=== PATIENT | female | born 1965 | race Caucasian/White ===

== ENCOUNTER 2017-04-14 13:09 | Emergency (ER) | payer OTHER ==
--- NOTE | 2017-04-14 14:43 | Emergency Department Report ---
ED Fall HPI - General Chief Complaint: Laceration/Recheck/Suture Stated Complaint: FELL/HEAD LACERATION Time Seen by Provider: 04/14/17 14:28 Source: patient, family Mode of arrival: Ambulatory Limitations: No Limitations - History of Present Illness Initial Comments: Patient reported that she tripped and fell striking her head on the ground which was concrete. She said that she didn't lose consciousness. Reports cut to forehead. Reports headache at 10 out of 10. Denies any neck pain or stiffness. Patient reports that she had bilateral knee pain but the left is worse than the right. Pain is 10 out of 10 PRESSURE is 166/110 and she says she does not have high blood pressure and she only takes vitamins she is okay she feels anxious. Denies blurred vision or dizziness at present. Denies any nausea or vomiting. Denies any back pain. Denies any decreased sensation. Pain is achy and located all over her head. TD Vaccine is not up-to-date. Patient reports She was having chest pain.. She has no history of heart disease. Denies any shortness of breath. Patient appears anxious. 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 denies: neck pain, numbness, weakness, chest paint, shortness of breath, abdominal pain, hematuria, unable to walk, lightheaded, vertigo, confusion - Related Data Previous Rx's Medication Instructions Recorded Last Taken Type Acetaminophen [Non-Aspirin Pain 500 mg PO TID PRN #15 tablet 04/14/17 Unknown Rx Relief] Ascorbic Acid/Vitamin E/Biotin 1 each PO QDAY #30 tab.chew 04/14/17 Unknown Rx [Hair Skin Nails-Biotin Gummies] Cephalexin [Keflex] 500 mg PO Q8HR #15 cap 04/14/17 Unknown Rx Allergies Allergy/AdvReac Type Severity Reaction Status Date / Time No Known Allergies Allergy Unverified 04/14/17 13:31 ED Review of Systems ROS: Stated complaint: FELL/HEAD LACERATION Other details as noted in HPI Comment: All other systems reviewed and negative Constitutional: denies: chills, fever Eyes: denies: vision change ENT: denies: epistaxis Respiratory: no symptoms reported Cardiovascular: chest pain. denies: palpitations, edema, syncope Gastrointestinal: denies: abdominal pain, nausea, vomiting, diarrhea Genitourinary: denies: urgency, dysuria, frequency, hematuria Musculoskeletal: arthralgia. denies: back pain, joint swelling, myalgia Skin: other (laceration) Neurological: headache. denies: weakness, numbness, paresthesias, confusion, abnormal gait, vertigo Psychiatric: anxiety ED Past Medical Hx - Past Medical History Previous Medical History?: No - Surgical History Past Surgical History?: Yes Additional Surgical History: hyesterectomy - Family History Family history: no significant - Social History Smoking Status: Never Smoker Substance Use Type: None - Medications Home Medications: Home Medications Medication Instructions Recorded Confirmed Last Taken Type Acetaminophen [Non-Aspirin Pain 500 mg PO TID PRN #15 tablet 04/14/17 Unknown Rx Relief] Ascorbic Acid/Vitamin E/Biotin 1 each PO QDAY #30 tab.chew 04/14/17 Unknown Rx [Hair Skin Nails-Biotin Gummies] Cephalexin [Keflex] 500 mg PO Q8HR #15 cap 04/14/17 Unknown Rx ED Physical Exam - General Limitations: Language Barrier General appearance: alert, anxious - Head Head exam: Present: atraumatic, normocephalic, normal inspection - Expanded Head Exam Expanded Head exam: Present: laceration (mid forehead). Absent: abrasion, contusion, hematoma, racoon eyes, redding's sign, general tenderness, tenderness of temporal artery, CSF rhinorrhea, CSF otorrhea - Eye Eye exam: Present: normal appearance, PERRL, EOMI. Absent: scleral icterus, conjunctival injection, nystagmus, periorbital swelling, periorbital tenderness Pupils: Present: normal accommodation - ENT ENT exam: Present: normal exam, normal orophraynx - Neck Neck exam: Present: normal inspection, full ROM. Absent: tenderness, meningismus, lymphadenopathy - Expanded Neck Exam Expanded Neck exam: Absent: tenderness, midline deformity, anterior neck swelling, tracheal deviation - Respiratory Respiratory exam: Present: normal lung sounds bilaterally. Absent: respiratory distress, chest wall tenderness - Cardiovascular Cardiovascular Exam: Present: regular rate, normal rhythm, normal heart sounds - GI/Abdominal GI/Abdominal exam: Present: soft, normal bowel sounds. Absent: distended, tenderness, guarding, rebound, rigid - Extremities Exam Extremities exam: Present: normal inspection, full ROM, normal capillary refill , other (patient with joint deformity, swelling or erythema. Bilateral knee with full range of motion and strength 5 out of 5. No crepitus or effusion. No redness, abrasion or laceration. No neurovascular compromise her extremities. Pulses are 2+.). Absent: tenderness, pedal edema, joint swelling , calf tenderness - Back Exam Back exam: Present: normal inspection, full ROM. Absent: tenderness, CVA tenderness (R), CVA tenderness (L), muscle spasm, paraspinal tenderness, vertebral tenderness, rash noted - Neurological Exam Neurological exam: Present: alert, oriented X3, normal gait, reflexes normal. Absent: motor sensory deficit - Expanded Neurological Exam Expanded Neurological exam: Absent: innattentive, memory loss-remote event, memory loss- recent event, ataxia, receptive aphasia, expressive aphasia, total aphasia, tremor, protecting the airway Patient oriented to: Present: person, place, time Speech: Present: fluid speech Cranial nerves: EOM's Intact: Normal, Gag Reflex: Normal, Tongue Deviation: Normal, Nystagmus: Normal, Facial Sensation: Normal Cerebellar function: Romberg: Normal Upper motor neuron: Pronator Drift: Normal, Sensory Extinction: Normal Sensory exam: Upper Extremity Light Touch: Normal, Upper Extremity Pin Prick: Normal, Upper Extremity Temperature: Normal, UE 2 Point Discrimination: Normal, Lower Extremity Light Touch: Normal, Lower Extremity Pin Prick: Normal, Lower Extremity Temperature: Normal, LE 2 Point Discrimination: Normal Motor strength exam: RUE: 5, LUE: 5, RLE: 5, LLE: 5 DTR: bicep (R): 2+, bicep (L): 2+, tricep (R): 2+, tricep (L): 2+, knee (R): 2+ , knee (L): 2+, ankle (R): 2+, ankle (L): 2+ Best Eye Response ([place]): (4) open spontaneously Best Motor Response ([place]): (6) obeys commands Best Verbal Response ([place]): (5) oriented [place] Total: 15 - Psychiatric Psychiatric exam: Present: normal affect, normal mood - Skin Skin exam: Present: warm, dry, other (laceration forehead) - Expanded Skin Exam Expanded Type of lesion: Present: laceration (forehead) Distribution of rash: head (forehead) Description of rash: Present: size (3), tenderness, swelling (mild swelling around the laceration site). Absent: erythematous, indurated ED Course Vital Signs 04/14/17 13:12 Temperature 98.1 F Pulse Rate 79 Respiratory 22 Rate Blood Pressure 166/110 O2 Sat by Pulse 98 Oximetry PT/INR, D-dimer PT 13.5 Sec. (12.2-14.9) 04/14/17 15:13 INR 1.04 (0.87-1.13) 04/14/17 15:13 Vital Signs 04/14/17 04/14/17 13:12 17:32 Temperature 98.1 F 98 F Pulse Rate 79 76 Respiratory 22 18 Rate Blood Pressure 166/110 Blood Pressure 146/95 [Left] O2 Sat by Pulse 98 95 Oximetry - Reevaluation(s) Reevaluation #1: 04/14/17 17:37 Patient given [place] 5/325 2 tablets and Valium 10 mg. Emergency room for headache and anxiety. He is now calm and without pain. Procedure note laceration repair. SHe was also given Boostrix vaccines up-to-date tetanus in the emergency room - Laceration /Wound Repair Medial Frontal Wound Location: head (mid forehead) Wound Length (cm): 3 Wound's Depth, Shape: superficial, linear Wound Explored: clean Irrigated w/ Saline (ccs): 500 Betadine Prep?: Yes Anesthesia: 0.5% Sensorcaine (0.5% Marcaine) Volume Anesthetic (ccs): 2 Wound Debrided: moderate Wound Repaired With: sutures Suture Size/Type: 6:0 (Vicryl) Number of Sutures: 18 Layer Closure?: No Sterile Dressing Applied?: Yes ED Medical Decision Making - Lab Data Result diagrams: 04/14/17 15:13 04/14/17 15:13 Lab Results 04/14/17 04/14/17 04/14/17 Range/Units 15:13 15:13 15:13 WBC 10.9 (4.5-11.0) K/mm3 RBC 4.41 (3.65-5.03) M/mm3 Hgb 13.3 (10.1-14.3) gm/dl Hct 39.6 (30.3-42.9) % MCV 90 (79-97) fl MCH 30 (28-32) pg MCHC 34 (30-34) % RDW 14.0 (13.2-15.2) % Plt Count 242 (140-440) K/mm3 Lymph % (Auto) 15.1 (13.4-35.0) % [place] % (Auto) 5.4 (0.0-7.3) % Eos % (Auto) 1.4 (0.0-4.3) % Baso % (Auto) 0.6 (0.0-1.8) % Lymph # 1.6 (1.2-5.4) K/mm3 [place] # 0.6 (0.0-0.8) K/mm3 Eos # 0.1 (0.0-0.4) K/mm3 Baso # 0.1 (0.0-0.1) K/mm3 Seg Neutrophils % 77.5 H (40.0-70.0) % Seg Neutrophils # 8.4 H (1.8-7.7) K/mm3 PT (12.2-14.9) Sec. INR (0.87-1.13) APTT (24.2-36.6) Sec. Sodium 143 (137-145) mmol/L Potassium 4.7 (3.6-5.0) mmol/L Chloride 102.7 (98-107) mmol/L Carbon Dioxide 28 (22-30) mmol/L Anion Gap 17 mmol/L BUN 11 (7-17) mg/dL Creatinine 0.8 (0.7-1.2) mg/dL Estimated GFR > 60 ml/min BUN/Creatinine Ratio 13.75 % Glucose 95 (65-100) mg/dL Calcium 9.4 (8.4-10.2) mg/dL Troponin T < 0.010 (0.00-0.029) ng/mL Urine Color (Yellow) Urine Turbidity (Clear) Urine pH (5.0-7.0) Ur Specific [place] (1.003-1.030) Urine Protein (Negative) mg/dL Urine Glucose (UA) (Negative) mg/dL Urine Ketones (Negative) mg/dL Urine Blood (Negative) Urine Nitrite (Negative) Urine Bilirubin (Negative) Urine Urobilinogen (<2.0) mg/dL Ur Leukocyte Esterase (Negative) Urine WBC (Auto) (0.0-6.0) /HPF Urine RBC (Auto) (0.0-6.0) /HPF Hyaline Casts /LPF 04/14/17 04/14/17 Range/Units 15:13 16:02 WBC (4.5-11.0) K/mm3 RBC (3.65-5.03) M/mm3 Hgb (10.1-14.3) gm/dl Hct (30.3-42.9) % MCV (79-97) fl MCH (28-32) pg MCHC (30-34) % RDW (13.2-15.2) % Plt Count (140-440) K/mm3 Lymph % (Auto) (13.4-35.0) % [place] % (Auto) (0.0-7.3) % Eos % (Auto) (0.0-4.3) % Baso % (Auto) (0.0-1.8) % Lymph # (1.2-5.4) K/mm3 [place] # (0.0-0.8) K/mm3 Eos # (0.0-0.4) K/mm3 Baso # (0.0-0.1) K/mm3 Seg Neutrophils % (40.0-70.0) % Seg Neutrophils # (1.8-7.7) K/mm3 PT 13.5 (12.2-14.9) Sec. INR 1.04 (0.87-1.13) APTT 30.0 (24.2-36.6) Sec. Sodium (137-145) mmol/L Potassium (3.6-5.0) mmol/L Chloride (98-107) mmol/L Carbon Dioxide (22-30) mmol/L Anion Gap mmol/L BUN (7-17) mg/dL Creatinine (0.7-1.2) mg/dL Estimated GFR ml/min BUN/Creatinine Ratio % Glucose (65-100) mg/dL Calcium (8.4-10.2) mg/dL Troponin T (0.00-0.029) ng/mL Urine Color Colorless (Yellow) Urine Turbidity Clear (Clear) Urine pH 8.0 H (5.0-7.0) Ur Specific [place] 1.003 (1.003-1.030) Urine Protein <15 mg/dl (Negative) mg/dL Urine Glucose (UA) Neg (Negative) mg/dL Urine Ketones Neg (Negative) mg/dL Urine Blood Neg (Negative) Urine Nitrite Neg (Negative) Urine Bilirubin Neg (Negative) Urine Urobilinogen < 2.0 (<2.0) mg/dL Ur Leukocyte Esterase Neg (Negative) Urine WBC (Auto) < 1.0 (0.0-6.0) /HPF Urine RBC (Auto) < 1.0 (0.0-6.0) /HPF Hyaline Casts 1 /LPF - EKG Data -: EKG Interpreted by Me (attending physician) EKG shows normal: sinus rhythm (66 bpm) - EKG Data Interpretation: no acute changes - Radiology Data Radiology results: report reviewed CT scan of the brain revealed no acute intracranial processes X-ray knee reveals no acute fracture or dislocation. X-ray of chest reveals no acute cardiopulmonary processes - Medical Decision Making Course: The patient is status post accidental fall with headache, knee pain and laceration to forehead. See procedure note for detail and laceration repair. I explained to patient that her x-ray and CT scan was normal. She is also having atypical chest pain with anxiety and troponin within normal limits CBC, PT PTT and BMP stable and explained to patient. EKG reveals no acute findings. Patient has no comorbidities and her cardiac risk score is low. Patient appears to have normalized, she any headache or chest pain. Valium 10 mg by mouth emergency room for anxiety and 5/325 2 tablets for pain. Patient was given Boostrix 0.5 cc to update tetanus. I encouraged discharge instructions on closed head injury. Patient discharged home with prescription for Keflex, collagen vitamin and Tylenol plain and to follow-up status post head injury and 24 hours at urgent care or emergency room for reevaluation. Critical care attestation.: If time is entered above; I have spent that time in minutes in the direct care of this critically ill patient, excluding procedure time. ED Disposition Clinical Impression: Fall from ground level, Atypical chest pain, Anxiety about health, Elevated BP without diagnosis of hypertension, Arthralgia of both knees Laceration of forehead without complication Qualifiers: Encounter type: initial encounter Qualified Code(s): S01.81XA - Laceration without foreign body of other part of head, initial encounter Closed head injury without loss of consciousness Qualifiers: Encounter type: initial encounter Qualified Code(s): S09.90XA - Unspecified injury of head, initial encounter Headache Qualifiers: Headache type: post-traumatic Headache chronicity pattern: acute headache Intractability: not intractable Qualified Code(s): G44.319 - Acute post- traumatic headache, not intractable Disposition: DC-01 TO HOME OR SELFCARE Is pt being admited?: No Does the pt Need Aspirin: No Condition: Stable Instructions: Arthralgia (ED), Acute Headache (ED), Fall Prevention (ED), Laceration (ED), Absorbable Suture Care (ED), Minor Head Injury (ED), Chest Pain (ED) Additional Instructions: Follow-up primary care physician tomorrow status post head injury Take medication as instructed. Keep Affected area clean and dry Read Discharge instruction on closed head injury. If chest pain reoccur ,Return to the emergency room otherwise follow-up with primary care physician's office. Prescriptions: Acetaminophen [Non-Aspirin Pain Relief] 500 mg PO TID PRN #15 tablet PRN Reason: Pain Ascorbic Acid/Vitamin E/Biotin [Hair Skin Nails-Biotin Gummies] 1 each PO QDAY # 30 tab.chew Cephalexin [Keflex] 500 mg PO Q8HR #15 cap Referrals: PRIMARY CAREMD [Primary Care Provider] - 04/15/17 Forms: Accompanied Note, Work/School Release Form(ED) Print Language: FRENCH
[2017-04-14] MEDS ORDERED: VALIUM PO ONE (15:28)
[2017-04-14] MEDS ORDERED: NORCO 5/325 PO ONE (15:28)
[2017-04-14] MEDS ORDERED: BOOSTRIX IM ONE (15:29)
[2017-04-14] MEDS ORDERED: MARCAINE 0.5% INFILTRATI ONE (15:30)
[2017-04-14] MEDS ORDERED: NACL 0.9% IR ONE (15:30)
[2017-04-14 15:43] LABS: Basophils % (Auto) 0.6 % (0.0-1.8); Eosinophils % (Auto) 1.4 % (0.0-4.3); Hematocrit 39.6 % (30.3-42.9); Hemoglobin 13.3 gm/dl (10.1-14.3); Mean Corpuscular HGB Conc 34 % (30-34); Mean Corpuscular Hemoglobin 30 pg (28-32); Mean Corpuscular Volume 90 fl (79-97); Platelet Count 242 K/mm3 (140-440); Red Blood Count 4.41 M/mm3 (3.65-5.03); White Blood Count 10.9 K/mm3 (4.5-11.0)
--- NOTE | 2017-04-14 15:47 | Cat Scan Report ---
FINAL REPORT EXAM: CT HEAD/BRAIN WO CON HISTORY: fall TECHNIQUE: CT scan of the brain without IV contrast. Axial images only. PRIORS: None FINDINGS: Brain volume is normal for age. No hemorrhage, mass, mass effect, or midline shift. No hydrocephalus. Normal basal cisterns. No pathologic extra-axial fluid collection. No evidence of acute infarct. No skull fracture. IMPRESSION: 1. No acute intracranial finding.
[2017-04-14 15:48] LABS: Anion Gap 17 mmol/L; BUN/Creatinine Ratio 13.75; Blood Urea Nitrogen 11 mg/dL (7-17); Calcium 9.4 mg/dL (8.4-10.2); Carbon Dioxide 28 mmol/L (22-30); Chloride 102.7 mmol/L (98-107); Glucose 95 mg/dL (65-100); Potassium 4.7 mmol/L (3.6-5.0); Sodium 143 mmol/L (137-145)
[2017-04-14 15:51] LABS: INR 1.04 (0.87-1.13)
--- NOTE | 2017-04-14 15:57 | XRay Report ---
FINAL REPORT EXAM: XR CHEST ROUTINE 2V HISTORY: chest pain TECHNIQUE: Frontal and lateral chest radiographs. PRIORS: None. FINDINGS: The left lateral costophrenic angle was not completely included on the frontal image. The cardiomediastinal silhouette is normal. No focal consolidation. No pleural effusion. No pneumothorax. No acute osseous abnormality. IMPRESSION: No acute cardiopulmonary process.
--- NOTE | 2017-04-14 15:58 | XRay Report ---
FINAL REPORT EXAM: XR KNEE 3V LT HISTORY: KNEE pain sp fall TECHNIQUE: Three views of the left knee. PRIORS: None. FINDINGS: No fracture. No dislocation. Normal mineralization. No soft tissue abnormality. No joint effusion. IMPRESSION: Normal left knee.
[2017-04-14 16:23] LABS: Bilirubin,Urine NEG (Negative); Blood,Urine NEG (Negative); Ketones,Urine NEG (Negative); Leukocyte Esterase,Urine NEG (Negative); Nitrite,Urine NEG (Negative); Protein,Urine <15 mg/dL mg/dL (Negative); RBC,Urine < 1.0 /HPF (0.0-6.0); Urobilinogen,Urine < 2.0 mg/dL (<2.0); WBC,Urine < 1.0 /HPF (0.0-6.0)
[2017-04-14 17:32] VITALS: BP 146/95
== END 2017-04-14 18:03 | disposition home or self-care (01) ==
LOC: ED 13:09
DX: S01.81XA Laceration without foreign body of other part of head, initial encounter (principal); Z90.710 Acquired absence of both cervix and uterus; W18.30XA Fall on same level, unspecified, initial encounter; Y93.89 Activity, other specified; Y92.89 Other specified places as the place of occurrence of the external cause; Y99.8 Other external cause status
CPT/HCPCS: 36415; 70450; 71020; 80048; 81001; 84484; 85025; 85610; 85730; 90471; 90715; 93005; 93010; 99284